=== PATIENT | male | born 1985 | race Caucasian/White ===

== ENCOUNTER 2018-12-31 19:55 | Emergency (ER) | payer OTHER ==
[~2018-12-31] VITALS: Ht 172 cm; Wt 68.0 kg
[2018-12-31 20:10] VITALS: BP 122/79; TEMP 98.8
[2018-12-31 20:56] LABS: STREP SCREEN NEGATIVE
[2018-12-31 21:58] VITALS: PULSE 72
== END 2018-12-31 21:58 | disposition home or self-care (01) ==
LOC: COL.ER 19:55
PROVIDERS: Emergency Medicine
DX: J06.9 Acute upper respiratory infection, unspecified (principal)